=== PATIENT | female | born 1980 | race African-American/Black ===

== ENCOUNTER 2018-12-18 22:04 | Emergency (ER) | payer BC ==
[~2018-12-18] VITALS: Ht 152.4 cm; Wt 109.8 kg
[2018-12-19] MEDS ORDERED: HYDROmorphone 2 MG/ML VIAL IM ONE (00:15)
[2018-12-19] MEDS ORDERED: SUMAtriptan SUCC 6 MG/0.5 ML VIAL. SQ ONE (00:15)
[2018-12-19] MEDS ORDERED: METOCLOPRAMIDE HCL 10 MG/2 ML VIAL. IM ONE (00:15)
[2018-12-19 01:16] VITALS: BP 118/69
[2018-12-19] MEDS ORDERED: SUMA100T3 PO (01:29)
[2018-12-19] MEDS ORDERED: ONDA4TAB7 PO (01:29)
--- NOTE | 2018-12-19 01:29 | PHYS DOC ---
Past Medical History Past Medical History: Migraines Past Surgical History: Hysterectomy Alcohol Use: None Drug Use: None Adult General Chief Complaint Chief Complaint: HEADACHE HPI HPI Patient is a 38-year-old female who presents with complaint of severe migraine. Patient states that this is typical of her migraines. She reports to photophobia and nausea. Patient states that she has taken some [id number] medication at home without success. She states that pain is worsened with change of position. She states that nothing is improving her headache. She denies any fever, chest pain, shortness of breath. Review of Systems Review of Systems Constitutional: Denies fever or chills [] Respiratory: Denies cough or shortness of breath [] Cardiovascular: No additional information not addressed in HPI [] GI: Denies abdominal pain. Complains of nausea. [] Neurologic: Complains of headache without focal weakness or sensory changes [] All other systems were reviewed and found to be within normal limits, except as documented in this note. Current Medications Current Medications Current Medications Medications (Trade) Dose Ordered Sig/[facility] Start Time Stop Time Status Last Admin Dose Admin Hydromorphone HCl (Dilaudid) 1 mg 1X ONCE 12/19/18 00:15 12/19/18 00:16 DC 12/19/18 00:22 1 MG Metoclopramide HCl (Reglan Vial) 10 mg 1X ONCE 12/19/18 00:15 12/19/18 00:16 DC 12/19/18 00:22 10 MG Sumatriptan Succinate (Imitrex) 6 mg 1X ONCE 12/19/18 00:15 12/19/18 00:16 DC 12/19/18 00:22 6 MG Allergies Allergies Allergies Coded Allergies Type Severity Reaction Last Updated Verified No Known Drug Allergies 12/18/18 No Physical Exam Physical Exam Constitutional: Well developed, well nourished, in mild distress, non-toxic appearance. [] HENT: Normocephalic, atraumatic, bilateral external ears normal, oropharynx moist, no oral exudates, nose normal. [] Eyes: PERRLA, EOMI, conjunctiva normal, no discharge. [] Neck: Normal range of motion, no tenderness, supple, no stridor. [] Cardiovascular: Regular rate and rhythm[] Lungs & Thorax: Bilateral breath sounds clear to auscultation [] Abdomen: Bowel sounds normal, soft, no tenderness. [] Skin: Warm, dry, no erythema, no rash. [] Extremities: No tenderness, no cyanosis, no clubbing, ROM intact, no edema. [] Neurologic: Alert and oriented X 3, no focal deficits noted. [] Current Patient Data Vital Signs Vital Signs Date Time Temp Pulse Resp B/P (MAP) Pulse Ox O2 Delivery O2 Flow Rate FiO2 12/19/18 01:16 60 98 12/19/18 00:22 16 Room Air 12/18/18 23:25 97.7 135/75 (95) 97.7 EKG EKG [] Radiology/Procedures Radiology/Procedures [] Course & Med Decision Making Course & Med Decision Making Pertinent Labs and Imaging studies reviewed. (See chart for details) [] Dragon Disclaimer Dragon Disclaimer This electronic medical record was generated, in whole or in part, using a voice recognition dictation system. Departure Departure Impression: Primary Impression: Migraine headache Disposition: HOME, SELF-CARE Condition: STABLE Referrals: ALIREZA CROUCH MD (PCP) Patient Instructions: Migraine Headache Scripts Ondansetron Hcl (ZOFRAN) 4 Mg Tablet 4 MG PO PRN TID PRN for NAUSEA, #12 nausea/vomiting Prov: NEREIDA DENNY Jr. DO 12/19/18 Sumatriptan Succinate (IMITREX) 100 Mg Tablet 100 MG PO ONCE PRN for MIGRAINE HEADACHE, #9 TAB Prov: NEREIDA DENNY Jr. DO 12/19/18 Problem Qualifiers Primary Impression: Migraine headache Migraine type: without aura Status migrainosus presence: without status migrainosus Intractability: not intractable Qualified Codes: G43.009 - Migraine without aura, not intractable, without status migrainosus NEREIDA DENNY Jr. DO Dec 19, 2018 01:29
== END 2018-12-19 01:44 | disposition home or self-care (01) ==
LOC: ER 22:04
DX: G43.009 Migraine without aura, not intractable, without status migrainosus (principal); R11.0 Nausea; Z90.710 Acquired absence of both cervix and uterus
CPT/HCPCS: 96372; 99283; J1170; J2765; J3030; 99284-25